=== PATIENT | male | born 1960 | race Caucasian/White ===

== ENCOUNTER 2020-03-13 08:04 | Outpatient (CLI) | payer OTHER, SELFPAY ==
[2020-03-13 08:42] LABS: Anion Gap 6 mmol/L (8-16); Blood Urea Nitrogen 16 mg/dL (9-20); Calcium 9.4 mg/dL (8.4-10.2); Carbon Dioxide 28 mmol/L (22-30); Chloride 104 mmol/L (98-107); Cholesterol 183 mg/dL (0-200); Estimated Glomerular Filt Rate > 60; Glucose 116 mg/dL (75-110); HDL Direct 46 mg/dL; Potassium 4.6 mmol/L (3.4-5.0); Sodium 138 mmol/L (137-145); Triglycerides 90 mg/dL (<150)
[2020-03-13 08:52] LABS: LDL Cholesterol Direct 99 mg/dL
[2020-03-13 09:12] LABS: Prostate Specific Antigen 2.8 ng/mL (< OR = 4.0)
== END 2020-03-13 08:05 | disposition home or self-care (01) ==
PROVIDERS: PCP Internal Medicine; Visit Provider Internal Medicine
DX: Z12.5 Encounter for screening for malignant neoplasm of prostate (principal); Z13.6 Encounter for screening for cardiovascular disorders; Z13.220 Encounter for screening for lipoid disorders
CPT/HCPCS: 36415; 80048; 80061; 84153; G0103

== ENCOUNTER 2021-03-14 09:17 | Outpatient (CLI) | payer BC, OTHER, SELFPAY ==
[2021-03-14 10:34] LABS: Alanine Aminotransferase 16 U/L (4-50); Albumin Level 4.7 g/dL (3.5-5.1); Alkaline Phosphatase 61 U/L (38-126); Anion Gap 11 mmol/L (8-16); Aspartate Amino Transferase 22 U/L (17-59); Bilirubin,Total 0.7 mg/dL (0.2-1.3); Blood Urea Nitrogen 18 mg/dL (9-20); Calcium 9.3 mg/dL (8.4-10.2); Carbon Dioxide 25 mmol/L (22-30); Chloride 106 mmol/L (98-107); Cholesterol 180 mg/dL (0-200); Estimated Glomerular Filt Rate > 60; Glucose 115 mg/dL (65-110); HDL Direct 59 mg/dL; Potassium 4.6 mmol/L (3.4-5.0); Sodium 142 mmol/L (137-145); Triglycerides 94 mg/dL (<150)
[2021-03-14 10:45] LABS: LDL Cholesterol Direct 85 mg/dL
[2021-03-14 11:04] LABS: Prostate Specific Antigen 4.3 ng/mL (< OR = 4.0)
[2021-03-14 12:26] LABS: Hemoglobin A1C 5.5 % (<5.7)
== END 2021-03-14 09:18 | disposition home or self-care (01) ==
LOC: ANHLAB 09:23
PROVIDERS: PCP Internal Medicine; Visit Provider Internal Medicine
DX: Z12.5 Encounter for screening for malignant neoplasm of prostate (principal); R73.01 Impaired fasting glucose; Z00.00 Encounter for general adult medical examination without abnormal findings; Z13.220 Encounter for screening for lipoid disorders
CPT/HCPCS: 36415; 80053; 80061; 83036; 84153; G0103

== ENCOUNTER 2021-11-02 08:37 | Outpatient (CLI) | payer BC, SELFPAY | END 2021-11-02 08:38 | disposition home or self-care (01) | PROVIDERS: PCP Internal Medicine; Visit Provider Nurse Practitioner | DX: R97.20 Elevated prostate specific antigen [PSA] (principal) | CPT/HCPCS: 36415; 84153 ==

== ENCOUNTER 2022-05-03 08:51 | Outpatient (CLI) | payer BC, SELFPAY ==
[2022-05-03 09:31] LABS: Alanine Aminotransferase 26 U/L (6-50); Albumin Level 4.5 g/dL (3.5-5.1); Alkaline Phosphatase 66 U/L (38-126); Anion Gap 10 mmol/L (8-16); Aspartate Amino Transferase 21 U/L (17-59); Bilirubin,Total 0.6 mg/dL (0.2-1.3); Blood Urea Nitrogen 10 mg/dL (9-20); Calcium 8.7 mg/dL (8.4-10.2); Carbon Dioxide 27 mmol/L (22-30); Chloride 105 mmol/L (98-107); Cholesterol 171 mg/dL (0-200); Estimated Glomerular Filt Rate > 60; Glucose 108 mg/dL (65-110); HDL Direct 46 mg/dL; Potassium 4.6 mmol/L (3.4-5.0); Sodium 142 mmol/L (137-145); Triglycerides 102 mg/dL (<150)
[2022-05-03 09:43] LABS: LDL Cholesterol Direct 90 mg/dL
[2022-05-03 12:52] LABS: Hemoglobin A1C 5.7 % (<5.7)
[2022-05-03 13:16] LABS: Prostate Specific Antigen 4.1 ng/mL (< OR = 4.0)
== END 2022-05-03 08:52 | disposition home or self-care (01) ==
LOC: ANHLAB 08:56
PROVIDERS: PCP Internal Medicine; Visit Provider Nurse Practitioner
DX: Z13.220 Encounter for screening for lipoid disorders (principal); R73.09 Other abnormal glucose; Z13.6 Encounter for screening for cardiovascular disorders; R97.20 Elevated prostate specific antigen [PSA]
CPT/HCPCS: 36415; 80053; 80061; 83036; 84153

== ENCOUNTER 2022-06-30 00:34 | Day surgery (SDC) | payer BC, SELFPAY ==
[2022-06-14 12:46] VITALS: BMI 29.9
--- NOTE | 2022-06-29 19:48 | PM.HPGS ---
History of Present Illness History of Present Illness Consent: Risks, benefits, and alternatives have been discussed and questions answered. Patient agrees to proceed with procedure. Chief complaint: neoplasm screening Narrative: Damion Cordova is a 61 year old male referred for colon cancer screening. His last colonosopy was 11 years ago. Review of Systems Review of Systems: All systems reviewed & are unremarkable except as noted in HPI and below PMFSH Family History Family History Mother Patient's mother is in good health Father Patient's father is in good health Sibling Patient's brother is in good health Social History Social History Years smoked: 5 Smoking status: Former smoker Tobacco type: cigarettes Smoking end date: 06/25/94 Alcohol intake: current Drinks per week: 5 Alcohol use details: periodically Substance use: never Substance use type: does not use Living arrangements: with family Spiritual care concerns: No Meds Home Medications and Allergies Home Medications Medication Instructions Recorded Confirmed Type tadalafil 10 mg tablet See Rx Instructions .Route 10/31/21 06/30/22 Rx .COMPLEX #10 tabs omeprazole 20 mg capsule,delayed 20 mg PO DAILY #90 caps 02/23/22 06/30/22 Rx release metronidazole 0.75 % topical cream 1 applic topical DAILY #45 grams 05/12/22 06/30/22 Rx Allergies Allergy/AdvReac Type Severity Reaction Status Date / Time No Known Allergies Allergy Verified 06/30/22 07:10 Exam Const: General: alert Orientation/consciousness: patient oriented x3 Resp: Auscultation: clear to auscultation bilaterally Cardio: Rhythm: regular rhythm GI: GI Palp: Yes Soft to palpation and No Tenderness to palpation present (GI) Neuro: General: patient oriented x3 Assessment and Plan Assessment and plan (1) Colon cancer screening: Code(s): Z12.11 - Encounter for screening for malignant neoplasm of colon Status: Acute Assessment and Plan: Colonoscopy with possible biopsy or polypectomy or cautery or injection of substances.
[2022-06-30 07:11] VITALS: BP 152/94; PULSE 91; RESP 16; TEMP 36.2; O2SAT 98; BMI 31.2
[2022-06-30] MEDS: LACTATED RINGERS 1,000 ML 150 ML IV CONT (07:22)
--- NOTE | 2022-06-30 07:54 | P.PNAN_ITS ---
Anes - Initial Pre Proc Eval Procedure: Operation Date: 06/30/22 08:30 Proposed Procedures p Screening Colonoscopy - Julien Painter MD Date/Time: 06/30/22 07:54 Surgeon: Julien Painter MD Pre Op Diagnosis: neoplasm screening Patient Data Age: 61 Gender: M Height: 1.83 m Weight: 104.5 kg Last Vital Signs Temp 97.2 F L 06/30/22 07:11 Pulse 91 06/30/22 07:11 Resp 16 06/30/22 07:11 BP 152/94 H 06/30/22 07:11 Pulse Ox 98 06/30/22 07:11 O2 Del Method Room Air 06/30/22 07:11 Allergies Allergy/AdvReac Type Severity Reaction Status Date / Time No Known Allergies Allergy Verified 06/30/22 07:10 Home Medications Medication Instructions Recorded Confirmed Type tadalafil 10 mg tablet See Rx Instructions .Route 10/31/21 06/30/22 Rx .COMPLEX #10 tabs omeprazole 20 mg capsule,delayed 20 mg PO DAILY #90 caps 02/23/22 06/30/22 Rx release metronidazole 0.75 % topical cream 1 applic topical DAILY #45 grams 05/12/22 06/30/22 Rx Patient hx anesthesia problems: none Family hx anesthesia problems: none Results Review: All pre-operative results and documents have been reviewed as part of the pre- operative evaluation. [facility] Family History Family History Mother Patient's mother is in good health Father Patient's father is in good health Sibling Patient's brother is in good health Social History Social History Years smoked: 5 Smoking status: Former smoker Tobacco type: cigarettes Smoking end date: 06/25/94 Alcohol intake: current Drinks per week: 5 Alcohol use details: periodically Substance use: never Substance use type: does not use Living arrangements: with family Spiritual care concerns: No Anes - Eval Final PreProcedure Day of Procedure 06/30/22 07:54 Patient weight: obese Heart: regular rate and rhythm Lungs: clear to auscultation Airway: Mallampati scale class II Neurological: alert and oriented Last oral intake: >/= 8 hours ASA classification: II Emergent: no Anesthetic plan: proceed Results Review: All pre-operative results and documents have been reviewed as part of the pre- operative evaluation. Informed Consent: The patient's anesthetic plan and its attendant risks and benefits were discussed with the patient/family/POA. Questions were solicited and answers provided to the satisfaction of the patient/family/POA.
[2022-06-30 08:37] VITALS: BP 117/97; PULSE 78; RESP 16; O2SAT 94
[2022-06-30 08:47] VITALS: BP 124/83; PULSE 76; RESP 23; O2SAT 97
[2022-06-30 08:57] VITALS: BP 119/87; PULSE 69; RESP 15; O2SAT 100
== END 2022-06-30 09:16 | disposition home or self-care (01) ==
PROVIDERS: PCP Internal Medicine; Visit Provider Internal Medicine Gastroenterology
PROC: 0DJD8ZZ Inspection of Lower Intestinal Tract, Via Natural or Artificial Opening Endoscopic (ICD-10-PCS; CPT 45378; principal; 2022-06-30 08:30)
DX: Z12.11 Encounter for screening for malignant neoplasm of colon (principal); K64.8 Other hemorrhoids; K63.5 Polyp of colon; Z87.891 Personal history of nicotine dependence; E66.9 Obesity, unspecified; Z68.31 Body mass index [BMI] 31.0-31.9, adult
CPT/HCPCS: 45380; 88305; J2704; J7120

== ENCOUNTER 2022-12-04 06:54 | Outpatient (CLI) | payer BC, SELFPAY ==
[2022-12-04 07:28] LABS: Alanine Aminotransferase 26 U/L (6-50); Albumin Level 4.4 g/dL (3.5-5.1); Alkaline Phosphatase 68 U/L (38-126); Anion Gap 10 mmol/L (8-16); Aspartate Amino Transferase 23 U/L (17-59); Bilirubin,Total 0.6 mg/dL (0.2-1.3); Blood Urea Nitrogen 15 mg/dL (9-20); Calcium 8.5 mg/dL (8.4-10.2); Carbon Dioxide 23 mmol/L (22-30); Chloride 107 mmol/L (98-107); Cholesterol 177 mg/dL (0-200); Estimated Glomerular Filt Rate > 60; Glucose 117 mg/dL (65-110); HDL Direct 48 mg/dL; Potassium 4.4 mmol/L (3.4-5.0); Sodium 140 mmol/L (137-145); Triglycerides 134 mg/dL (<150)
[2022-12-04 07:35] LABS: Hemoglobin A1C 5.5 % (<5.7)
[2022-12-04 07:39] LABS: LDL Cholesterol Direct 97 mg/dL
[2022-12-04 08:02] LABS: Prostate Specific Antigen 3.9 ng/mL (< OR = 4.0)
== END 2022-12-04 06:55 | disposition home or self-care (01) ==
PROVIDERS: Internal Medicine; PCP Family Medicine; Visit Provider Family Medicine
DX: R73.09 Other abnormal glucose (principal); E78.49 Other hyperlipidemia; Z13.6 Encounter for screening for cardiovascular disorders; E78.5 Hyperlipidemia, unspecified; R97.20 Elevated prostate specific antigen [PSA]
CPT/HCPCS: 36415; 80053; 80061; 83036; 84153

== ENCOUNTER 2023-12-08 08:35 | Outpatient (CLI) | payer BC, SELFPAY ==
[2023-12-08 09:57] LABS: Alanine Aminotransferase 22 U/L (6-50); Albumin Level 4.7 g/dL (3.5-5.1); Alkaline Phosphatase 62 U/L (38-126); Anion Gap 10 mmol/L (4-12); Aspartate Amino Transferase 25 U/L (17-59); Bilirubin,Total 1.2 mg/dL (0.2-1.3); Blood Urea Nitrogen 16 mg/dL (9-20); Calcium 9.4 mg/dL (8.4-10.2); Carbon Dioxide 25 mmol/L (22-30); Chloride 106 mmol/L (98-107); Cholesterol 178 mg/dL (0-200); Estimated Glomerular Filt Rate > 60; Glucose 108 mg/dL (65-110); HDL Direct 57 mg/dL; Potassium 4.2 mmol/L (3.4-5.0); Sodium 141 mmol/L (137-145); Triglycerides 61 mg/dL (<150)
[2023-12-08 10:04] LABS: Hemoglobin A1C 5.3 % (<5.7)
[2023-12-08 10:07] LABS: LDL Cholesterol Direct 102 mg/dL
[2023-12-08 10:25] LABS: Prostate Specific Antigen 6.8 ng/mL (< OR = 4.0)
== END 2023-12-08 08:36 | disposition home or self-care (01) ==
LOC: ANHLAB 08:36
PROVIDERS: PCP Nurse Practitioner; Visit Provider Nurse Practitioner
DX: Z00.00 Encounter for general adult medical examination without abnormal findings (principal); R73.09 Other abnormal glucose; E78.5 Hyperlipidemia, unspecified; Z12.5 Encounter for screening for malignant neoplasm of prostate
CPT/HCPCS: 36415; 80053; 80061; 83036; 84153; G0103

== ENCOUNTER 2024-01-02 09:01 | Outpatient (CLI) | payer BC, SELFPAY ==
[2024-01-02 11:09] LABS: Prostate Specific Antigen 5.8 ng/mL (< OR = 4.0)
== END 2024-01-02 09:02 | disposition home or self-care (01) ==
LOC: ANHLAB 09:02
PROVIDERS: PCP Nurse Practitioner; Visit Provider Nurse Practitioner
DX: R97.20 Elevated prostate specific antigen [PSA] (principal)
CPT/HCPCS: 36415; 84153

== ENCOUNTER 2024-04-19 07:48 | Outpatient (CLI) | payer BC, SELFPAY ==
[2024-04-19 08:59] LABS: Prostate Specific Antigen 5.4 ng/mL (< OR = 4.0)
== END 2024-04-19 07:49 | disposition home or self-care (01) ==
LOC: ANHLAB 07:51
PROVIDERS: PCP Nurse Practitioner; Visit Provider Urology
DX: R97.20 Elevated prostate specific antigen [PSA] (principal)
CPT/HCPCS: 36415; 84153

== ENCOUNTER 2024-07-29 08:53 | Outpatient (CLI) | payer BC, SELFPAY ==
[2024-07-29 09:31] LABS: Alanine Aminotransferase 20 U/L (6-50); Albumin Level 4.8 g/dL (3.5-5.1); Alkaline Phosphatase 73 U/L (38-126); Aspartate Amino Transferase 22 U/L (17-59)
[2024-07-29 09:59] LABS: Prostate Specific Antigen 5.2 ng/mL (< OR = 4.0)
== END 2024-07-29 08:54 | disposition home or self-care (01) ==
LOC: ANHLAB 08:54
PROVIDERS: PCP Internal Medicine; Visit Provider Internal Medicine
DX: R97.20 Elevated prostate specific antigen [PSA] (principal); Z51.81 Encounter for therapeutic drug level monitoring; Z79.899 Other long term (current) drug therapy
CPT/HCPCS: 36415; 80076; 84153

== ENCOUNTER 2024-07-31 10:04 | Outpatient (CLI) | payer BC, SELFPAY ==
[2024-07-31 11:14] LABS: Alanine Aminotransferase 20 U/L (6-50); Albumin Level 4.9 g/dL (3.5-5.1); Alkaline Phosphatase 77 U/L (38-126); Aspartate Amino Transferase 22 U/L (17-59); Bilirubin,Total 1.1 mg/dL (0.2-1.3)
== END 2024-07-31 10:05 | disposition home or self-care (01) ==
LOC: ANHLAB 10:06
PROVIDERS: PCP Internal Medicine; Visit Provider Internal Medicine
DX: Z51.81 Encounter for therapeutic drug level monitoring (principal); Z79.899 Other long term (current) drug therapy
CPT/HCPCS: 36415; 80076

== ENCOUNTER 2024-08-16 08:55 | Outpatient (CLI) | payer BC, SELFPAY ==
[2024-08-16 09:15] LABS: Alanine Aminotransferase 23 U/L (6-50); Albumin Level 4.2 g/dL (3.5-5.1); Alkaline Phosphatase 71 U/L (38-126); Aspartate Amino Transferase 23 U/L (17-59); Bilirubin,Total 0.9 mg/dL (0.2-1.3)
== END 2024-08-16 08:56 | disposition home or self-care (01) ==
LOC: ANHLAB 08:57
PROVIDERS: PCP Internal Medicine; Visit Provider Internal Medicine
DX: Z51.81 Encounter for therapeutic drug level monitoring (principal); Z79.899 Other long term (current) drug therapy
CPT/HCPCS: 36415; 80076

== ENCOUNTER 2024-11-22 12:04 | Emergency (ER) | payer BC, SELFPAY ==
--- NOTE | 2024-11-22 12:12 | ED_ITS ---
HPI - Extremity Injury (Lower) General Chief Complaint: Skin/Abscess/Foreign Body Stated Complaint: Lt Foot injury patient presents to the [facility] with complaints of injury to left middle toe 5 days ago. Patient reports he dropped a landscaping brick on his barefoot only hitting this middle toe. Patient reports he has applied some triple antibiotic ointment and keep the bandage over this and watch the area. Patient significant blister swelling to the area and has concern for infection. Patient reports he is not concerned for fractures due to minimal pain and no significant treatment for toe fractures. Denies numbness or tingling in her toes, fever, chills, body aches, or colored drainage from the area Related Data Home Medications ?Medication ?Instructions ?Recorded ?Confirmed ?Last Taken ?Type metronidazole 0.75 % topical gel 1 applic topical DAILY 12/07/22 08/01/24 Unknown History acyclovir 400 mg tablet 400 mg PO .PRN 07/29/24 11/22/24 Unknown History Allergies Allergy/AdvReac Type Severity Reaction Status Date / Time No Known Allergies Allergy Verified 11/22/24 12:09 Review of Systems Constitutional: Constitutional: Reports as per HPI, Denies chills, Denies fatigue, Denies fever(s) and Denies weakness Eyes: Eyes: Reports no additional eye complaints ENT: Reports system reviewed and no additional complaints, except as documented Cardiovascular: Cardiovascular: Reports no additional cardiovascular complaints Respiratory: Respiratory: Reports no additional respiratory complaints Gastrointestinal: Gastrointestinal: Reports no additional gastrointestinal complaints Genitourinary: Genitourinary: Reports no additional male genitourinary complaints Musculoskeletal: Musculoskeletal: Reports as per HPI, Reports arthralgias and Reports joint swelling Comments: left middle toe Integumentary/Breasts: Skin/Breast: Reports as per HPI, Denies breast pain, Denies breast mass, Denies pruritus, Denies rash and Denies skin ulcer Comments: bruising, blistering, swelling, abrasion left middle toe Neurologic: Reports as per HPI, Denies focal weakness, Denies numbness and Denies weakness Psychiatric: Psychiatric: Reports no additional psychiatric complaints Endocrine: Endocrine: Reports no additional endocrine complaints [facility] Family History Family History Mother Patient's mother is in good health Father Patient's father is in good health Sibling Patient's brother is in good health Social History Social History Smoking packs per day: 2 Smoking cigarettes per day: 40.0 Years smoked: 5 Smoking pack-years: 10.00 Smoking status: Former smoker Tobacco type: cigarettes Smoking end date: 06/25/94 Alcohol intake: current Drinks per week: 5 Alcohol use details: periodically Substance use: never Substance use type: does not use Living arrangements: with family Spiritual care concerns: No Exam Const: General: healthy appearing and no acute distress; No diaphoretic or ill appearing Nutritional Appearance: well nourished Orientation/consciousness: patient oriented x3 Limitations: no limitations Resp: Effort & Inspection: normal respiratory effort Cardio: Rate: regular rate Skin: General skin exam: normal color Rashes: no rashes Wounds: wounds noted Other: minimal abrasion left 3rd toe with blood blister surrounding Bottom and medial side of left toe. no active drainage or crusting noted. Neuro: General: patient oriented x3 and moves all extremities Speech: normal speech Gait exam (Neuro): Normal gait present Extrem: Left lower extremity: foot Details: normal capillary refill, abnormal to inspection, tenderness, abnormal ROM of toe Details: pain with active ROM Location: of the 3rd digit and pain with passive ROM of the 3rd digit, edema (3rd toe ), ecchymosis (3rd toe ), vascular exam Details: dorsalis pedis pulse present, posterior tibial pulse present and normal capillary refill and motor- sensory exam two point discrimination normal, light-touch normal and pin-prick normal; no unusual warmth and no puncture wound Psych: Mental Status: mental status grossly normal Affect: normal affect Attitude: cooperative Course Course Level of Care: Express Care Visit MDM - Extremity Injury (Lower) MDM Narrative Medical decision making narrative: Spoke with patient about overall wound. Patient declines x-ray at that time. Local physician about wound care given the significant area of blistering / blood blister would recommend clean drainage at this area to help with wound healing. Patient agreeable to this procedure. Wound care instructions given to patient. Follow-up with primary care if symptoms not improved in 1 week significant new symptoms reviewed with patient that should be evaluated in the emergency room. Discharge instructions reviewed with patient, as well as provided in writing per nursing staff. The instructions also include specific and strict return/GO TO THE ER as well as f/u information. All questions have been answered, and the patient deny any further questions with discharge and discharge plan. Differential Diagnosis Differential diagnosis: Likely puncture wound of foot, fracture of toe and other ( Open fracture, fracture of toe, contusion) Medical Records Attestation: I reviewed the patient's medical records. Discharge Plan Discharge Clinical Impression: Contusion of third toe of left foot, Infection of skin and subcutaneous tissue Patient Disposition: Home Condition: Stable Instructions: Antibiotic Form, Foot Contusion (ED), Acute Wounds (ED) Additional Instructions: keep this bandage in place for 2 days. Then may remove and perform gentle wound cleanser and apply triple antibiotic ointment. Cover with a bandage. Try to keep foot elevated as much as possible. Tylenol, ibuprofen, or ice applied to the area as needed. Take entire course of antibiotics until they are gone. Watch area for increased signs and symptoms of infection follow-up with primary care in 1 week if symptoms not improved Patient Language: Trinid[place] Prescriptions: New cephalexin 500 mg capsule 500 mg PO Q12H Qty: 20 0RF No Action metronidazole 0.75 % gel 1 applic topical DAILY acyclovir 400 mg tablet 400 mg PO .PRN Rx Instructions: Take at first sign of cold sore terbinafine HCl 250 mg tablet 250 mg PO DAILY Qty: 30 2RF tadalafil 10 mg tablet See Rx Instructions .ROUTE .COMPLEX PRN (Reason: sexual activity) Qty: 10 6RF Dose Instruction: Take 1 tablet by mouth once daily Rx Instructions: Take 1 tablet by mouth once daily PRN; ketoconazole 2 % cream 1 applic topical BID Qty: 30 0RF omeprazole 20 mg capsule,delayed release(DR/EC) 20 mg PO DAILY Qty: 90 2RF Follow-up/Referrals: Slim Johnson DO [Primary Care Provider] - Time of Disposition: 12:53
[2024-11-22 12:14] VITALS: BP 136/80; PULSE 81; RESP 18; TEMP 36.4; O2SAT 97
== END 2024-11-22 12:54 | disposition home or self-care (01) ==
PROVIDERS: Emergency Provider Nurse Practitioner Family; PCP Internal Medicine
DX: S90.122A Contusion of left lesser toe(s) without damage to nail, initial encounter (principal); W20.8XXA Other cause of strike by thrown, projected or falling object, initial encounter; L08.9 Local infection of the skin and subcutaneous tissue, unspecified; Z87.891 Personal history of nicotine dependence
CPT/HCPCS: 99213; G0463